=== PATIENT | male | born 1995 | race African-American/Black ===

== ENCOUNTER 2021-07-06 04:41 | Emergency (ER) | payer SELFPAY ==
[~2021-07-06] VITALS: Ht 188 cm; Wt 72.7 kg
[2021-07-06] MEDS ORDERED: KETAMINE HCL 50 MG/ML 10 ML VIAL ONE (04:57)
[2021-07-06 05:00] VITALS: BP 119/59
[2021-07-06 05:12] VITALS: BP 133/67
[2021-07-06] MEDS ORDERED: KETAMINE HCL 50 MG/ML 10 ML VIAL IVP ONE (05:15)
[2021-07-06] MEDS ORDERED: PERTUSS(ACELL),DIPH,TET VAC/PF 0.5 ML SYRINGE IM. ONE (05:15)
[2021-07-06] MEDS ORDERED: CeFAZolin 1 GM/DEXTROSE 50 ML IV ONE (05:15)
[2021-07-06 05:36] VITALS: BP 161/71
== END 2021-07-06 05:30 | disposition short-term general hospital (02) ==
LOC: EMS 04:41
DX: S71.112A Laceration without foreign body, left thigh, initial encounter (principal); W45.8XXA Other foreign body or object entering through skin, initial encounter; Y93.89 Activity, other specified; Y92.89 Other specified places as the place of occurrence of the external cause; Y99.8 Other external cause status
CPT/HCPCS: 36415; 36430; 86850; 86900; 86901; 86920; 90471; 90715; 96365; 96375; 99291; J0690; J3490; P9016